=== PATIENT | male | born 1965 | race Caucasian/White ===

== ENCOUNTER 2020-08-03 16:56 | Outpatient (CLI) | payer OTHER | END 2020-08-03 16:57 | disposition home or self-care (01) | LOC: COV 16:56 | PROVIDERS: ATTEND Family Medicine | DX: Z20.828 Contact with and (suspected) exposure to other viral communicable diseases (principal) ==

== ENCOUNTER 2024-05-20 10:03 | Outpatient (CLI) | payer BC ==
--- NOTE | 2024-05-20 10:53 | Sleep Patient Instructions ---
Sleep Center Visit Summary - Patient Visit Information Reason for Visit: Initial consult for evaluation of sleep disordered breathing and other sleep issues. - Patient Instructions Instructions Attached: Sleep Study, Sleep Study Home Monitor Additional Instructions: You will be completing a sleep study, either an in-lab polysomnography (PSG) or home sleep study (HST). You will follow-up in the sleep care office after the sleep study is completed to hear the results and talk about therapy, if needed. You will be called by our office staff to schedule this appointment, but you may contact us with any questions. - Clinic Information Contact: [facility] [address] [place] [id number] [email or web address] T: [phone]
--- NOTE | 2024-05-20 10:57 | SLEEP CARE CONSULTATION ---
Information from patient questionnaire entered by Talia Crespo. I have reviewed and concur with the information entered by Talia Crespo. This document represents the service I personally performed and the decisions made by me, Lizbeth Lemus ARNP. History of Present Illness Service Date and Time: 05/20/2024 1003 Reason for Visit: New patient Accompanied by: Spouse (Christiane) Chief Complaint: reports: Snoring, Observed pauses in breathing Date of Onset: 2YRS Usual bedtime: VARIES ON WORK SHIFT Time it takes to fall asleep: 10-15MINS Snores at night: Yes Observed to quit breathing while asleep: Yes Sleeps alone due to snoring: No Number of times waking at night: 1 Reasons for waking at night: reports: Other (UNKNOWN). denies: Choking, Snoring, Gasping for air Toss, Turn, or Twitch while sleeping: No ( says he is restless in his sleep) Recalls having dreams: Yes Usually gets out of bed at: [id number] Feels refreshed in the morning: Yes Morning headache: No Sleepy or fatigued during the day: No Ever fallen asleep while driving: No Takes day naps: No Dreams during day naps: No Prior sleep studies: No Additional HPI information: I had the pleasure of seeing JUAN NEW today regarding the possibility of him having a sleep disorder. His current complaints are snoring and observed pauses in breathing. He has had trouble sleeping but he has been working various shifts. He feels it has been getting better. His says he would snore heavily and would have times where he stopped breathing when sleeping. It seems to be worse when he "overworks". He has had steroid shots for his muscle spasms, some back/hip pain and has had round of oral steroids. He thinks the Gabapentin has helped a lot with the muscle spasms. He has gained weight. His brother was diagnosed with sleep apnea and was treated with bariatric surgery. - Parasomnia Symptoms Ever been unable to move upon waking from sleep: No Walks in sleep: No Talks in sleep: Yes (on occasion) Ever acted out dreams in sleep: No Ever felt weak in the knees when startled or emotional: No Bothered by creepy, crawly, restless sensations in legs: Yes (has muscle spasms in legs due to hip/back issues) Problems with memory or concentration: No Subjective Initial [place] Sleepiness Scale score: 6 (05/08/24) Past Medical History Past Medical History: reports: Hypertension, Arthritis, Other (DVT 2018; occ. acid reflux) Social History The patient's occupation is a [employer]ER. Patient is and lives in [place]. Have you smoked in the past 12 months: No Alcohol use: Yes Alcohol amount and frequency: 1-2 DRINKS ON MYOFF WEEKS Caffeine use: Yes Caffeine amount and frequency: 1 PER DAY Family History Family history of sleep disordered breathing: Yes Family Hx Sleep Apnea: Sibling: Sleep apnea - Treated Allergies and Home Medications Known drug allergies: No Drug allergies reviewed: Yes Home medication list reviewed: Yes (as listed) Allergy and home medication list: Allergies No Known Drug Allergies Allergy (Verified 05/19/24 07:30) Home Medications Medication Instructions Recorded Confirmed Last Taken Type Acid Director Payment See Rx Instructions .ROUTE .[facility] 05/20/24 05/20/24 Unknown History Aspirin See Rx Instructions .ROUTE .[facility] 05/20/24 05/20/24 Unknown History Gabapentin See Rx Instructions .ROUTE .[facility] 05/20/24 05/20/24 Unknown History Hydrochlorothiazide See Rx Instructions .ROUTE .[facility] 05/20/24 05/20/24 Unknown History Krill/Om-3/Dha/Epa/Phospho/Ast See Rx Instructions .ROUTE .[facility] 05/20/24 05/20/24 Unknown History Losartan See Rx Instructions .ROUTE .[facility] 05/20/24 05/20/24 Unknown History Magnesium See Rx Instructions .[facility]OUTE .[facility] 05/20/24 05/20/24 Unknown History Meloxicam See Rx Instructions .ROUTE .[facility] 05/20/24 05/20/24 Unknown History Tums (Calcium Carbonate 500mg) See Rx Instructions .ROUTE .[facility] 05/20/24 05/20/24 Unknown History Vitamin C See Rx Instructions .ROUTE .[facility] 05/20/24 05/20/24 Unknown History Xarelto See Rx Instructions .ROUTE .[facility] 05/20/24 05/20/24 Unknown History Review of Systems Weight gain over past 5 years: 25 Cardiovascular: reports: high blood pressure, palpitations, leg or foot swelling Gastrointestinal: reports: heartburn Neurological: denies: headaches Psychiatric: denies: anxiety, depression Ear/Nose/Throat: reports: tonsillectomy Musculoskeletal: reports: joint pain, back pain, joint swelling, muscle pain or cramping Physical Exam Vital signs obtained and entered by: LIZBETH CHAPMAN Blood Pressure: 146/86 Cuff size: long (left arm) Heart Rate: 67 O2 Saturation: 98 Height: 6 ft 1 in Weight: 258 lb 3.2 oz Body Mass Index: 34.0 BMI Classification: Obese Neck circumference: 17.75 (inches) Nostrils: patent to airflow Mouth and throat: narrow oropharynx Soft palate: long Hard palate: normal Uvula: normal Uvula visualization: 0% Mallampati Class IV Tongue: enlarged in size with teeth ha on lateral edges Tonsils: absent bilaterally Neck: normal w/o lymphadenopathy or thyromegaly Heart: regular rate and rhythm Lungs: clear bilaterally Impression and Plan 1. Suspected Obstructive Sleep Apnea-Hypopnea Syndrome, as suggested by a history of loud and irregular snoring and observed cessation of breath while asleep. Narrow oropharynx and obesity are common predisposing factors for obstructive sleep apnea-hypopnea syndrome. I recommend proceeding to polysomnography to confirm the diagnosis and to assess severity. If the patient has significant sleep disordered breathing, a manual CPAP titration study will also be performed to find the optimal treatment pressure. I informed the patient of what the sleep studies involve and after some discussion, obtained agreement to proceed. The pathophysiology of obstructive sleep apnea-hypopnea syndrome was discussed with the patient and health risks of cardiovascular and cerebrovascular disease if not treated. Risks of drowsy driving discussed in detail and patient advised to avoid long distance driving and to pull up hand at the first sign of drowsiness. Patient agreed to plan. * Schedule polysomnography * Avoid long distance driving or driving when feeling sleepy. * Avoid alcohol, sedative and muscle relaxant around bedtime. * Attempt to lose weight. * Review instructions provided by trained office staff on how to prepare for the sleep study. * Return for follow-up after sleep study completed. Counseling Topics: Weight loss health impact Plan: PSG and followup Visit Type: In Office Time Spent with Patient (minutes): 32 Provider Statement: I spent 100% of the Face to Face Visit with the patient with greater than 50% spent counseling the patient and coordination of care.
[2024-05-20 10:59] VITALS: BP 146/86; O2SAT 98
== END 2024-05-20 10:04 | disposition home or self-care (01) ==
LOC: SC 10:03
PROVIDERS: ATTEND Nurse Practitioner Family
DX: R06.83 Snoring (principal); R06.81 Apnea, not elsewhere classified; E66.9 Obesity, unspecified; Z68.34 Body mass index [BMI] 34.0-34.9, adult; I10 Essential (primary) hypertension
CPT/HCPCS: 99203; 99212

== ENCOUNTER 2024-06-13 13:58 | Outpatient (CLI) | payer BC | END 2024-06-13 13:59 | disposition home or self-care (01) | LOC: SC 13:58 | PROVIDERS: ATTEND Nurse Practitioner Family | DX: G47.33 Obstructive sleep apnea (adult) (pediatric) (principal); R09.02 Hypoxemia; E66.9 Obesity, unspecified; Z68.34 Body mass index [BMI] 34.0-34.9, adult | CPT/HCPCS: 95806 ==

== ENCOUNTER 2024-07-11 08:40 | Outpatient (CLI) | payer BC ==
--- NOTE | 2024-07-11 09:07 | Sleep Patient Instructions ---
Sleep Center Visit Summary - Patient Visit Information Reason for Visit: Sleep study follow-up - Patient Instructions Instructions Attached: Apnea Sleep Mouthpieces Additional Instructions: You have opted for an oral mandibular appliance to control your sleep apnea. A list of certified dentists in the area was provided for you to find a dentist to have your oral appliance made. Once you have the device, please call and make a follow up appointment. We need to see you after you have been using the appliance for a month. We will evaluate your response to therapy and order a follow up sleep study to check efficiency of treatment. Please call office to schedule a follow up appointment in the sleep care office one month after obtaining new device. - Clinic Information Contact: [facility] [address] [place] [address] [email or web address] T: [phone]
--- NOTE | 2024-07-11 09:13 | SLEEP CARE CONSULTATION ---
Information from patient questionnaire entered by Prosper Polo. I have reviewed and concur with the information entered by Prosper Polo. This document represents the service I personally performed and the decisions made by , Lizbeth Lemus ARNP. History of Present Illness Service Date and Time: 07/11/2024 0840 Initial [place] Sleepiness Scale score: 6 (05/08/24) Current [place] Sleepiness Scale score: 3 (07/11/24) Additional HPI information: JUAN NEW returns for follow up and results of the recently performed home sleep study. The sleep study done on 06/13/24 showed mild obstructive sleep apnea with an average AHI of 12.9 and héctor oxygen saturation of 66%. I explained the pathophysiology behind obstructive sleep apnea. We then spent quite a bit of time discussing different treatment options. For mild obstructive sleep apnea, surgery and oral appliance are alternatives to nasal CPAP therapy but in moderate or severe cases, nasal CPAP is the most effective and reliable treatment. I reviewed the impact of weight changes on sleep apnea and strongly recommended losing weight. After some discussion, the patient opted to go with the oral appliance. Patient counseled not drink alcohol less than 4 hours before bedtime as it can increase snoring and apnea. Patient was cautioned about risks of drowsy driving until sleepiness symptoms resolve. Patient denies drowsy driving. Sleep Study - Results Type of Sleep Study: Home sleep study Prior sleep studies: No Polysomnography/Home Sleep Study results: Physician Impression: The quality of the study is good. The length of the study is adequate (> 240 minutes). Please also see the tabulated and graphic data. 1. Obstructive Sleep Apnea-Hypopnea (ICD-10 G47.33), mild, with an AHI of 12.9/hr and héctor SaO2 of 66%. During the study, the patient had 36 apneas (36 obstructive, 0 central, 0 mixed) and 53 hypopneas. The longest episode lasted 84.5 seconds. The patient only slept supine during this study (supine AHI was 12.9 and non-supine, 0.00). 2. Hypoxemia (ICD-10 R09.02), moderate, with the lowest oxygen saturation of 66 % and 78.5 minutes with SaO2 under 90%. Baseline oxygen saturation was normal (Average oxygen saturation was 90%). Allergies and Home Medications Known drug allergies: No Drug allergies reviewed: Yes Home medication list reviewed: Yes (no changes) Allergy and home medication list: Allergies No Known Drug Allergies Allergy Review of Systems Review of systems same as previous: Yes (no changes) Physical Exam Vital signs obtained and entered by: Lizbeth Avelar NP Blood Pressure: 139/90 Cuff size: long (right arm) Heart Rate: 80 O2 Saturation: 94 Height: 6 ft 1 in Weight: 252 lb Body Mass Index: 33.2 BMI Classification: Obese Impression and Plan 1. Obstructive Sleep Apnea-Hypopnea Syndrome, mild, with lowest oxygen saturation of 66%. Obviously this is the cause of the patients symptoms of unrefreshed sleep, and excessive daytime sleepiness. Positive pressure therapy could benefit hypertension. After some discussion, the patient opted to go with the oral appliance. A list of accredited dentists and one non-accredited dentist in general area to call for a consult. A prescription was given to start process. Patient advised to check insurance to see if oral appliance is covered. Some dentists do not take Medicare. I will have patient follow up in a month after obtaining oral device to check effectiveness of treatment. If reduction of symptoms and comfortable with treatment, a polysomnography will be ordered using the oral appliance to check efficacy of treatment. 2. Hypoxemia, moderate, with a héctor oxygen saturation of 66% and 78.5 minutes spent under 90%. The baseline oxygen saturation was normal with an average oxygen saturation of 90%. 3. Obesity, unspecified. Currently patients BMI is 33.2. Obesity increases the risk of apnea, CPAP pressure requirements and overall health risks especially cardiovascular and diabetes. Thus patient is advised to lose weight. * Oral Appliance. * Attempt to lose weight. * Avoid alcohol consumption near bedtime. * Elevate head to reduce apneas. * Return one month after oral appliance obtained. I will assess response to therapy at that time. Counseling Topics: Sleeping position, Weight loss health impact Prescriptions: Other (Oral Appliance) Follow up with Sleep Care in: other Plan: Follow up after using oral appliance for a month Visit Type: In Office Time Spent with Patient (minutes): 20 Provider Statement: I spent 100% of the Face to Face Visit with the patient with greater than 50% spent counseling the patient and coordination of care.
[2024-07-11 09:21] VITALS: BP 139/90; O2SAT 94
== END 2024-07-11 08:41 | disposition home or self-care (01) ==
LOC: SC 08:40
PROVIDERS: ATTEND Nurse Practitioner Family
DX: G47.33 Obstructive sleep apnea (adult) (pediatric) (principal); R09.02 Hypoxemia; E66.9 Obesity, unspecified; Z68.33 Body mass index [BMI] 33.0-33.9, adult
CPT/HCPCS: 99212; 99213